=== PATIENT | female | born 1940 | race Asian ===

== ENCOUNTER 2016-11-20 05:24 | Day surgery (SDC) | payer OTHER, MEDICARE ==
[2016-11-20] MEDS ORDERED: LR 1,000 ML IV ONE (05:59)
[2016-11-20] MEDS ORDERED: LIDOCAINE 1% 5 ML SDV ID PRN (05:59)
[2016-11-20] MEDS ORDERED: SKIN ADHESIVE (DERMABOND) 1 EACH TP ONE (06:51)
[2016-11-20] MEDS ORDERED: EPINEPHrine 30 MG/30 ML MDV ONE (06:51)
[2016-11-20] MEDS ORDERED: LIDO/BUPIVA 10ML SYR IU ONE (07:00)
[2016-11-20] MEDS ORDERED: LIDO/BUPIVA/morphINE 15ML SYR IU ONE (07:00)
[2016-11-20] MEDS ORDERED: CLINDAMYCIN 600 MG/DEXTROSE 50 ML IV ONE (07:00)
[2016-11-20] MEDS ORDERED: PROPOFOL/EMULSION 500 MG/50 ML BOTTLE IV ONE (07:09)
[2016-11-20] MEDS ORDERED: LIDOCAINE 2% 5 ML SDV ONE (07:09)
[2016-11-20] MEDS ORDERED: fentaNYL 100 MCG/2 ML INJ ONE (07:09)
[2016-11-20] MEDS ORDERED: DEXAMETHASONE 4 MG/ML VIAL ONE ×2 (07:11)
[2016-11-20] MEDS ORDERED: ROPIVACAINE HCL 150 MG/30 ML INJ ONE (07:20)
[2016-11-20] MEDS ORDERED: PHENYLEPHRINE HCL 100 MCG/ML SYR ONE (07:42)
[2016-11-20] MEDS ORDERED: PROPOFOL 200 MG/20 ML VIAL ONE (08:00)
[2016-11-20] MEDS ORDERED: GLYCOPYRROLATE 0.2 MG/1 ML VIAL ONE (08:34)
[2016-11-20] MEDS ORDERED: CEFAZOLIN 1 GM/DEXTROSE/50 ML BAG IV ONE (10:01)
[2016-11-20] MEDS ORDERED: CLINDAMYCIN 300 MG in NS 50 ML IV ONE (11:00)
--- NOTE | 2016-11-20 11:26 | GOP ---
[f rep st] OPERATIVE REPORT DATE OF OPERATION: 11/20/2016 SURGEON: Gerry Roberts MD PLANT CUSTODIAN: Ysabel Ho It should be noted no qualified resident was available. dental assistant teacher was necessary to assist with the procedure. ANESTHESIA: General with interscalene block. ANESTHESIOLOGIST: Dr. Wong. PREOPERATIVE DIAGNOSIS: Right shoulder rotator cuff tear, impingement, acromioclavicular joint inflammation, biceps tendon tendonitis. POSTOPERATIVE DIAGNOSIS: Right shoulder rotator cuff tear, impingement, acromioclavicular joint inflammation, biceps tendon tendonitis. PROCEDURE PERFORMED: 1. Arthroscopic repair of rotator cuff. CPT code 43939. 2. Arthroscopic subacromial decompression. CPT code 47680. 3. Arthroscopic distal clavicle excision. CPT code 73952. 4. Mini open subpectoral biceps tenodesis. CPT code 40028. ARTHROSCOPIC FINDINGS: 1. Intact articular cartilage with some small grade 2 changes on the humeral head and glenoid with an intact glenoid. 2. Intact anterior, inferior and posterior labrum. 3. Type 2 SLAP lesion. 4. Biceps tendon degeneration. 5. Full-thickness tear of the supraspinatus. 6. Moderate subacromial bursitis. 7. Downsloping anterior acromion. 8. A tight degenerative acromioclavicular joint. INDICATIONS: Patient is a 75-year-old with persistent right shoulder pain after injuring this last spring. Imaging and examination consistent with a tear of the rotator cuff. Also, impingement, acromioclavicular joint degeneration and biceps tendon degeneration. Patient had options discussed. She desired to go ahead with arthroscopic subacromial decompression, distal clavicle excision, repair of the rotator cuff, and biceps tenodesis. The patient understood the potential risks and benefits, including, but not limited to, bleeding, infection, persistent pain, stiffness and anesthetic risks. The patient understood these and desired to proceed. DESCRIPTION OF PROCEDURE: The patient was taken to the operating room after undergoing successful general anesthesia and an interscalene block. The patient was placed in beach chair position. The right upper extremity was prepped and draped in usual sterile manner. Anatomic landmarks were identified. The anterolateral and anteromedial portal sites were injected with 0.25% Marcaine and 1% lidocaine. The subacromial space was injected with the same. The posterior portal was made. Arthroscope was placed in the joint. With the arthroscope in the joint, an anterior portal was made as well. The probe was placed. The findings are described above. The confirmation of the tendon pathology was identified. The joint was evaluated. The arthroscope was taken out. Anterior axillary incision was made, and the biceps tenodesis was performed. After the incision in the anterior axillary crease, the pectoralis was reflected superiorly. A Hohmann retractor was placed. The biceps was identified. The biceps groove was curetted. A 2.9 mm juggernaut suture anchor was placed. This had two #2 max Braid sutures. These were placed through and around the biceps tendon. The biceps was tied into position. The biceps was cut above this. The arthroscope was placed back in the joint, and the biceps was cut at its attachment, and the superior labrum was debrided. Following this , the lateral portal was made. The undersurface of the rotator cuff was debrided. The greater tuberosity was decorticated. Following this, the arthroscope was placed in the subacromial space. A bursectomy was performed, followed by the subacromial decompression beginning anterolateral and extending from anterolateral to anteromedial with the acromionizer bur. The acromion was made flat. Following this, the distal clavicle was excised. Approximately 7 mm were excised. The superior and posterior ligament remained intact after excising this with the acromionizer bur. Next, a lateral cannula was placed and an anterolateral cannula was placed. The rotator cuff was visualized. This was a U-shaped, V-shaped tear. The [id number] sutures were done with a # 2 FiberWire suture and then 2 anchors were placed, medial along the greater tuberosity and lateral along the greater tuberosity. These were the 2.9 mm juggernaut suture anchors with #2 max Braid sutures. These were passed through in a gotb-su-[id number] fashion. The rotator cuff was fixed down to the bone. This provided good fixation. The tissue was fair to good. The area was irrigated after the . The portal sites were closed using 3-0 nylon suture. The anterior axillary incision was closed using 3-0 Monocryl, followed by a running 3-0 Prolene, followed by Dermabond. The subacromial space was injected with 0.25% Marcaine, 1% lidocaine and 5 mg of Duramorph. The patient had a sterile dressing. The patient was awakened. taken to recovery room in stable condition. Sponge, instrument and needle counts were correct. PATIENT POSITION: Beach chair. PLAN: For the patient to undergo physical therapy according to protocol. . /[id number]/MODL MTDD
== END 2016-11-20 11:55 | disposition home or self-care (01) ==
LOC: FSGY 05:24
PROVIDERS: ATTEND Orthopaedic Surgery Sports Medicine
PROC: 0RNG4ZZ Release Right Acromioclavicular Joint, Percutaneous Endoscopic Approach (ICD-10-PCS; principal; 2016-11-20 07:15)
PROC: 0PB94ZZ Excision of Right Clavicle, Percutaneous Endoscopic Approach (ICD-10-PCS; principal; 2016-11-20 07:15)
PROC: 0LQ14ZZ Repair Right Shoulder Tendon, Percutaneous Endoscopic Approach (ICD-10-PCS; principal; 2016-11-20 07:15)
PROC: 0LM30ZZ Reattachment of Right Upper Arm Tendon, Open Approach (ICD-10-PCS; principal; 2016-11-20 07:15)
DX: S46.011A Strain of muscle(s) and tendon(s) of the rotator cuff of right shoulder, initial encounter (principal); M75.21 Bicipital tendinitis, right shoulder; W06.XXXA Fall from bed, initial encounter; Y92.013 Bedroom of single-family (private) house as the place of occurrence of the external cause
CPT/HCPCS: C1713; J0690; J1100; J2274; J2370; J2704; J2795; J3010; J3490

== ENCOUNTER 2017-04-22 14:37 | Emergency (ER) | payer OTHER, MEDICARE ==
[2017-04-22 14:53] VITALS: BP 138/66; PULSE 90; RESP 18; TEMP 97.7; O2SAT 92
--- NOTE | 2017-04-22 15:40 | EDPHY ---
H & P Smoking Status: Former smoker Time Seen by Provider: 04/22/17 15:28 HPI/ROS: CHIEF COMPLAINT: Right toe injury HISTORY OF PRESENT ILLNESS: 76-year-old female stubbed her right 2nd toe last evening, complaining of pain to same toe. No paresthesia. No proximal pain or injury. She is able to bear weight albeit with pain. Pain reproducible weight- bearing and palpation. PHYSICAL EXAM (Prior to examination, patient consented to physical exam, hands were washed and my usual and customary physical exam procedures followed) 1) GENERAL: Well-developed, well-nourished, alert and oriented. Appears to be in no acute distress. 2) HEAD: Normocephalic 3) HEENT: Pupils equal, round, reactive to light bilaterally. 4) LUNGS: Breathing comfortably. 5) MUSCULOSKELETAL: Tender to palpation right 2nd toe distal phalanx. No deformity, no malrotation, no erythema. normal color, normal temperature Remainder foot nontender. No crepitus proximal tibia and fibula nontender .5th MT nontender negative Garner test, compartments soft 6) SKIN: intact 7) VASCULAR: DP,PT pulses and cap refill present and brisk DIFFERENTIAL DIAGNOSIS: in no particular order including but not limited to fracture, sprain, compartment syndrome Procedure: Splint A Postoperative shoe splint was applied by ER design technician. After application of the splint I returned and re-examined the patient. The splint was adequately immobilizing the joint and distal to the splint the patient's circulation and sensation were intact. Patient shows no signs of compartment syndrome. Was given orthopedic precautions. (Angela Pruett) Constitutional: Initial Vital Signs Temperature (C) 36.5 C 04/22/17 14:50 Heart Rate 90 04/22/17 14:50 Respiratory Rate 18 04/22/17 14:50 Blood Pressure 138/66 H 04/22/17 14:50 O2 Sat (%) 92 04/22/17 14:50 O2 Delivery Mode Room Air Allergies/Adverse Reactions: penicillin V potassium [From Pen-Vee K] Allergy (Severe, Verified 04/22/17 14:49 ) Anaphylaxis Sulfa (Sulfonamide Antibiotics) Allergy (Intermediate, Verified 04/22/17 14:49) VERY SICK Home Medications: Medication Instructions Recorded Aspirin [Aspirin 325 mg (*)] 325 mg PO DAILY 11/15/14 Budesonide/Formoterol 160/4.5 2 puffs IH BID 11/15/14 [Symbicort 160-4.5 Mcg Inh (*)] Escitalopram Oxalate [Lexapro 10 5 mg PO DAILY 11/15/14 MG] Herbals/Supplements -Info Only 1 ea PO DAILY 11/15/14 Levothyroxine [Synthroid 75 mcg 75 mcg PO DAILY06 11/15/14 (*)] Losartan Potassium [Cozaar] 50 mg PO DAILY 11/15/14 Tiotropium Inhaler [Spiriva 1 inh IH DAILY 11/16/14 Inhaler (RX)] Co Q-10 1 tab DAILY 10/31/16 Multivitamin (*) 2 tab DAILY 10/31/16 Ranitidine HCl 2 tab DAILY 10/31/16 Vitamin B12 (*) 1 tab DAILY 10/31/16 MDM/Departure - [facility] ED Course/Re-evaluation: I did not see this patient while she was in the emergency department. However her care was discussed with the PA while the patient was in the department. I agree with treatment plan and management (Artem Dotson) - Depart Disposition: Home, Routine, Self-Care Clinical Impression: Toe fracture, right Qualifiers: Encounter type: initial encounter Toe: lesser toe Fracture type: closed Phalanx : distal Fracture alignment: nondisplaced Qualified Code(s): S92.534A - Nondisplaced fracture of distal phalanx of right lesser toe(s), initial encounter for closed fracture Condition: Good Instructions: Toe Fracture (ED) Additional Instructions: Return to the ER immediately if you experience discoloration, have worsening pain, numbness, tingling, or any other symptoms that concern you. If you received x-rays in the emergency department today, be advised, that ligamentous , tendon, muscular, and other non-bony injury cannot be fully ruled out. Try to keep your affected extremity elevated above the level of your chest, and keep cold packs on the affected area, for the next 48 hours. Referrals: Genia Weber [Doctor of Podiatric Medicine] - 1-2 days without fail
== END 2017-04-22 15:46 | disposition home or self-care (01) ==
DX: S92.534A Nondisplaced fracture of distal phalanx of right lesser toe(s), initial encounter for closed fracture (principal); Z79.82 Long term (current) use of aspirin; Z87.891 Personal history of nicotine dependence; W22.8XXA Striking against or struck by other objects, initial encounter

== ENCOUNTER 2017-11-18 18:27 | Inpatient (IN) | payer OTHER, MEDICARE ==
[2017-11-18] MEDS ORDERED: PANTOPRAZOLE SODIUM 40 MG VIAL IVP ONE (18:56)
[2017-11-18] MEDS ORDERED: NS 500 ML IV ONE (18:56)
[2017-11-18 19:10] LABS: PLATELET COUNT 210 10^3/uL (150-400)
--- NOTE | 2017-11-18 19:26 | EDPHY ---
H & P Time Seen by Provider: 11/18/17 18:56 HPI/ROS: HPI Rectal bleeding. 76-year-old female who private vehicle with . This patient reports that shortly after eating dinner at approximately 6:15 p.m., she felt the urge to defecate. She then had a large episode of maggie bright red blood per rectum mixed with some fecal matter. She reports that this filled the toilet bowl. She describes this is painless. Denies any rectal pain or abdominal pain. She reports that she had a similar episode years ago. She had a colonoscopy performed by Dr. Torres. The bleeding was attributed to a polyp. She currently takes aspirin. No other anticoagulation or antiplatelet agent. Denies any abdominal pain. Last meal was dinner at approximately 6:00 p.m.. ROS: Constitutional: No fever, no chills. No weakness. Eyes: No discharge. No changes in vision. ENT: No sore throat. No nasal congestion or rhinorrhea. Respiratory: No cough. No shortness of breath. Cardiac: No chest pain, no palpitations. Gastrointestinal: No abdominal pain, no vomiting, no diarrhea. Genitourinary: No hematuria. No dysuria or increased frequency with urination. As above. Musculoskeletal: No back pain. No neck pain. No myalgias or arthralgias. Skin: No rashes. Neurological: No headache. No focal weakness or altered sensation. Past medical history: Hypertension, hypothyroidism, brain aneurysm, inguinal hernia repair, coronary artery disease with CABG in multiple stents. Social history: Nonsmoker. Drinks alcohol socially. Here with her . Physical Exam: General Appearance: Alert, no distress. This patient is responding to questions appropriately and in full sentences. This patient appears well- hydrated and well-nourished. Eyes: Pupils equal and round no pallor or injection. No lid edema, erythema or injection. Respiratory: There are no retractions, lungs are clear to auscultation with good air movement bilaterally. Cardiovascular: Regular rate and rhythm. No murmur. Gastrointestinal: Abdomen is soft and nontender, no masses, bowel sounds normal. No focal tenderness at McBurney's point. No Han sign. Rectal exam: External hemorrhoids which are not bleeding. Normal rectal tone, gross blood present. Neurological: Motor sensory function is grossly intact. Cranial nerves are normal. Gait is normal. Skin: Warm and dry, no rashes. Musculoskeletal: Neck is supple and nontender. Extremities are symmetrical. All joints range without pain or impingement. Psychiatric: No agitation. No depression. Database: EKG: Imaging: Procedures: Emergency department course: Vital signs reviewed and are normal. IV placed. She was placed on a monitor. She was started on IV normal saline with 500 cc to be given over the next hour. She was started on IV Protonix. 7:55 p.m., patient re-evaluated. Resting comfortably. She has had no further episodes of gross rectal bleeding. She denies any pain at this time. She appears comfortable. Vital signs were reviewed and are stable. Gastroenterology paged. 8:00 p.m., spoke with on-call chargemaster specialist Dr. Luna. Case discussed in detail. Plan will be to admit this patient to hospitalist service, prep patient for colonoscopy in the morning. This was discussed with the patient. She endorses. Hospitalist paged. 8:05 p.m., spoke with Dr. Morley of the hospitalist service. Case discussed in detail with him. He accepts this patient for admission. Her remaining emergency department course under my care has been uneventful. She was admitted to the hospitalist service under the care of Dr. Morley in stable condition. Differential Diagnosis: The differential diagnosis on this patient includes but is not limited to upper versus lower gastrointestinal bleeding, history of colonic polyps. This represents a partial list of diagnoses considered. These considerations are based on history, physical exam, past history, reassessment and diagnostic testing. Smoking Status: Former smoker Constitutional: Initial Vital Signs Temperature (C) 36.4 C 11/18/17 18:35 Heart Rate 95 11/18/17 18:35 Respiratory Rate 17 11/18/17 18:35 Blood Pressure 121/79 H 11/18/17 18:35 O2 Sat (%) 93 11/18/17 18:35 O2 Delivery Mode Nasal Cannula O2 (L/minute) 2 Allergies/Adverse Reactions: penicillin V potassium [From Pen-Vee K] Allergy (Severe, Verified 11/18/17 18:34 ) Anaphylaxis Sulfa (Sulfonamide Antibiotics) Allergy (Intermediate, Verified 11/18/17 18:34) VERY SICK Home Medications: Medication Instructions Recorded Budesonide/Formoterol 160/4.5 2 puffs IH BID 11/15/14 [Symbicort 160-4.5 Mcg Inh (*)] Cyanocobalamin [Vitamin B12 (*)] 5,000 mcg PO HS 10/31/16 Ranitidine HCl [Zantac] 300 mg PO HS 10/31/16 Albuterol [Proventil Inhaler HFA 1 - 2 puffs IH Q4H PRN 11/18/17 (*)] Aspirin [Aspirin 81mg (*)] 81 mg PO DAILY 11/18/17 Escitalopram Oxalate [Lexapro] 5 mg PO HS 11/18/17 Herbals/Supplements -Info Only 1 ea PO DAILY 11/18/17 Levothyroxine [Synthroid 75 mcg 75 mcg PO DAILY06 11/18/17 (*)] Losartan Potassium [Cozaar 50 mg 50 mg PO DAILY 11/18/17 (*)] Multivitamins [Multivitamin (*)] 1 each PO DAILY 11/18/17 Tiotropium Inhaler [Spiriva 18 mcg IH DAILY 11/18/17 Handihaler] Medical Decision Making - Data Points Laboratory Results: Laboratory Results 11/18/17 18:52 11/18/17 18:52 Medications Given: Budesonide/Formoterol Fumarate (Symbicort 160-4.5 Mcg Inhaler) 2 puffs IH BID [facility] Stop: 05/17/18 20:59 Last Admin: 11/19/17 09:03 Dose: 2 puffs Escitalopram Oxalate (Lexapro) 5 mg PO HS [facility] Stop: 05/17/18 20:59 Last Admin: 11/18/17 21:48 Dose: 5 mg Famotidine (Pepcid) 20 mg PO HS [facility] Stop: 05/17/18 20:59 Last Admin: 11/18/17 21:55 Dose: Not Given Levothyroxine Sodium (Synthroid) 75 mcg PO DAILY06 [facility] Stop: 05/18/18 05:59 Last Admin: 11/19/17 05:14 Dose: Not Given Multivitamins (Tab-A-Rylee) 1 each PO DAILY [facility] Stop: 05/18/18 08:59 Last Admin: 11/19/17 09:08 Dose: Not Given Tiotropium Mcandrews (Spiriva Handihaler) 18 mcg IH DAILY [facility] Stop: 05/18/18 08:59 Last Admin: 11/19/17 09:04 Dose: Not Given Vitamin B Complex (Vitamin B12) 5,000 mcg PO HS [facility] Stop: 05/17/18 20:59 Last Admin: 11/18/17 21:55 Dose: Not Given Discontinued Medications Sodium Chloride (Ns) 500 mls @ 0 mls/hr IV EDNOW ONE; Wide Open PRN Reason: Protocol Stop: 11/18/17 18:57 Last Admin: 11/18/17 19:09 Dose: 500 mls Sodium Chloride (Ns) 1,000 mls @ 75 mls/hr IV CONT [facility] Stop: 05/17/18 21:29 Last Admin: 11/18/17 21:48 Dose: 1,000 mls Pantoprazole Sodium (Protonix) 80 mg IVP EDNOW ONE Stop: 11/18/17 18:57 Last Admin: 11/18/17 19:33 Dose: 80 mg Polyethylene Glycol/Electrolytes (Gavilyte - G) 4,000 ml PO ONCE ONE Stop: 11/18/17 20:20 Last Admin: 11/18/17 21:48 Dose: 4,000 ml Departure - Departure Disposition: [facility] Clinical Impression: Rectal bleeding
[2017-11-18 19:39] LABS: INR 0.92 (0.83-1.16); PROTIME(PATIENT) 12.6 SEC (12.0-15.0)
[2017-11-18] MEDS ORDERED: ALBUTEROL 60 PUFFS/8 GM MDI IH PRN (20:19)
[2017-11-18] MEDS ORDERED: PEG 3350/NA SULF,BICARB,CL/KCL (GAVILYTE-G) 4000 ML BTL PO ONE (20:19)
--- NOTE | 2017-11-18 21:02 | PDGENHP ---
History and Physical History and Physical: CC: Rectal bleeding this evening HISTORY: This is the 3rd ever rectal bleeding episode for Ms Martin. She states that she was feeling fine eating dinner tonight when around quarter after 6 she had a sudden urge to defecate. She got up to the commode and passed a moderately large amount of red blood followed by a small piece of normal formed brown stool. She has had no bleeding since then and in fact has had 1 more bowel movement since then. She has no abdominal back flank rectal or anal pain or discomfort of any kind. There is no nausea and she has had no vomiting. She is not lightheaded or dizzy does not have chest pain or shortness of breath. She takes no nonsteroidal anti-inflammatories, no aspirin , no platelet inhibitors, no anticoagulants. She has been feeling well recently with normal appetite normal bowel function and no weight loss. No fevers. The patient did have a very brief nose bleed about a week ago but has had no other bleeding or bruising recently. Her 1st lower GI bleed was in 2011. At that time her bleeding stops spontaneously and she had a colonoscopy that showed 1 polyp which was biopsied and to diverticuli. There was no evidence as to the site of bleeding at that time. She return here in 2014 again with lower GI bleeding although that case was complicated by a more severe bleeding requiring transfusions and she actually was identified radiographically of having a cecal bleed which was treated with a coiling of the ileocolic artery which was successful. There was no endoscopy at that time and so it was not determined what the cause of that bleeding episode was. Notably her cecum was identified in the 2012 colonoscopy and there was no comment on any pathologic abnormality there. Also notable is that the patient had an abdominal aortic aneurysm with involvement of hypogastric in iliac arteries and she has had repair of the abdominal aorta as well as subsequent by passing of hypogastric and iliac arteries. She also has had a coiling of a cerebral aneurysm which was successful and she has no neurologic symptoms. ROS: A comprehensive 10 system review revealed no other significant findings PAST MEDICAL HISTORY: -2 prior episodes of lower GI bleeding, uncertain source but the 2nd was treated with coiling of ileocolic artery for a cecal bleed -2 diverticuli and a polyp noted on colonoscopy in 2012 -abdominal aortic aneurysm, aneurysms of hypogastric and iliac arteries all treated surgically; aneurysm of intracranial vessel treated by coiling elsewhere -COPD, treated at [facility] -hypertension -mild chronic kidney disease FAMILY MEDICAL HISTORY: No similar aneurysmal disease Mother lived to 94 father in his 70s of COPD SOCIAL HISTORY: and lives with her who is here at the bedside and very supportive Retired registered nurse No tobacco or alcohol MEDICATIONS: The patients list has been reconciled by our clinical pharmacist in the EMR. I have reviewed the list and ordered appropriate medicines. PHYSICAL EXAMINATION: Vital Signs: All stable at this time without fever Manager Mobile: Sinus rhythm Examination: General: alert, oriented, good mentation, relaxed Skin: warm, dry, good color, no rash HEENT: normal Neck: no mass or jvd Resps: relaxed Lungs: clear breath sounds Heart: regular, no murmur Abdomen: soft, nondistended, nontender, +BS, no mass Upper Extremities: normal Lower Extremities: no edema, warm No Bleeding or bruising noted on exam Neurologic: normal speech/language, normal bell neck hammerer, no focal weakness IV site: looks normal LABORATORY DATA: For CBC is unremarkable, coagulation studies normal On chemistry are creatinine is 1.3 with a baseline of 1.1 from 2015 otherwise metabolic panel normal RADIOLOGY STUDIES: None so far 12 LEAD EKG: None so far IMPRESSION: # ACUTE LOWER GI BLEED IS MOST LIKELY THE CAUSE OF HEMATOCHEZIA # PRIOR HISTORY OF 2 PREVIOUS LOWER GI BLEEDS OF UNCERTAIN SOURCE BUT 1 REQUIRED TRANSFUSIONS AND COILING OF ILEOCOLIC ARTERY # PRESENCE OF 2 DIVERTICULI AND A POLYP IN 2011 # MULTIPLE ANEURYSMS INCLUDING AORTA ILIAC ARTERIES HYPOGASTRIC ARTERY AND AN INTRACEREBRAL ANEURYSM ALL HAVE BEEN TREATED EITHER SURGICALLY OR WITH STENT AND COIL IN THE CASE OF THE INTRA CEREBRAL VESSEL # STABLE COPD AND HYPERTENSION The patient comes in stable in terms of vital signs and blood count. However her story is concerning in that there is no known etiology for her to previous bleeds, her 2nd episode required transfusions in a vascular procedure, and she has history of multiple vascular abnormalities including numerous aneurysms that have required surgeries and endovascular repair. Those overall she is at significant risk for problematic bleeding and complications. PLANS: -inpatient admission to the hospital for careful monitoring and diagnostic evaluations -IV hydration -blood to the blood bank for type and screen in case transfusion is needed -at this time will plan for colonoscopy in the morning -careful monitoring of vital signs and blood counts I reviewed all the above in detail with the patient and at the bedside and answered their questions Dr. Jones now from Gastroenterology has been consulted by the emergency staff I have reviewed the patient's case in detail with Dr. Sol I have reviewed the patient's past medical records as part of this assessment, including prior hospital records including endoscopy reports, laboratory data, admission and discharge notes And radiology reports
[2017-11-18] MEDS ORDERED: ZOLPIDEM TARTRATE 5 MG TAB PO PRN (21:18)
[2017-11-18] MEDS ORDERED: ACETAMINOPHEN 325 MG TAB PO PRN (21:18)
[2017-11-18] MEDS ORDERED: ONDANSETRON 4 MG/2 ML VIAL IVP PRN (21:18)
[2017-11-18] MEDS ORDERED: ONDANSETRON DISINTEGRATING 4 MG TAB PO PRN (21:18)
[2017-11-18] MEDS ORDERED: NS 1,000 ML IV SCH (21:30)
[2017-11-18] MEDS: ESCITALOPRAM OXALATE 10 MG TAB PO SCH (21:48)
[2017-11-18] MEDS: FAMOTIDINE 20 MG TAB PO SCH (21:55)
[2017-11-18] MEDS: CYANO/VITAMIN B12 1000 MCG TAB PO SCH (21:55)
[2017-11-18] MEDS: BUDESONIDE/FORMOTEROL 160/4.5 60 PUFFS/MDI IH SCH (22:08)
[2017-11-19] MEDS: LEVOTHYROXINE 75 MCG TAB PO SCH (05:14)
[2017-11-19] MEDS: BUDESONIDE/FORMOTEROL 160/4.5 60 PUFFS/MDI IH SCH ×2 (09:03→19:34)
[2017-11-19] MEDS: TIOTROPIUM INHALER 18 MCG/DOSE 5 DOSE/MDI IH SCH (09:04)
[2017-11-19] MEDS: MULTIVITAMINS 1 EACH TAB PO SCH (09:08)
--- NOTE | 2017-11-19 09:33 | ASMTCMCOM ---
CM Note CM Note Notes: Patient admitted for acute rectal bleeding. She has a remote history of lower GI bleeds as well as multiple aneurysms. She will be seen by GI and has a colonoscopy scheduled for today. Patient lives with her and is normally independent. I do not anticipate any discharge needs, but Case Management is available if any arise. Date Signed: 11/19/2017 09:32 AM Electronically Signed By:Moriah Luna RN
--- NOTE | 2017-11-19 10:20 | HOSPPROG ---
Hospitalist Progress Note Assessment/Plan: 76 yo F w BRBPR BRBPR; feel most consistent w diverticular bleed colonoscopy today no fever to suggest aortoenteric fistula ABLA: follow bid no need for transfusion h/o AAA repair: benign abd exam proph: hold LMWH dispo: inpt Subjective: case d/w dr quintanilla. no fever. continues to pass blood but no melena Objective: Vital Signs Temp Pulse Resp BP Pulse Ox 36.6 C 71 16 120/63 96 11/19/17 07:43 11/19/17 09:04 11/19/17 09:04 11/19/17 07:43 11/19/17 09:04 Laboratory Results 11/19/17 10:02 11/19/17 05:10 11/18/17 11/19/17 11/20/17 05:59 05:59 05:59 Intake Total 500 Balance 500 PT 12.6 SEC (12.0-15.0) 11/18/17 18:52 INR 0.92 (0.83-1.16) 11/18/17 18:52 - Physical Exam Constitutional: no apparent distress, appears nourished Eyes: PERRL, anicteric sclera Ears, Nose, Mouth, Throat: moist mucous membranes, hearing normal, ears appear normal Cardiovascular: regular rate and rhythym, no murmur, rub, or gallop Respiratory: no respiratory distress, no rales or rhonchi Gastrointestinal: normoactive bowel sounds, soft, non-tender abdomen Genitourinary: no bladder fullness, No smith in urethra Skin: warm, normal color Musculoskeletal: full muscle strength, no muscle tenderness Neurologic: AAOx3, sensation intact bilaterally ICD10 Worksheet Patient Problems: Problems Problem Status Onset Rectal bleeding Acute GI bleed Acute
--- NOTE | 2017-11-19 10:42 | GCON ---
[f rep st] CONSULTATION DATE OF CONSULTATION: 11/19/2017 CHIEF COMPLAINT: Hematochezia. HISTORY OF PRESENT ILLNESS: Patient is a 76-year-old with a complex history of recurrent GI bleeding, who presents with acute onset of bright red blood per rectum since yesterday with multiple bowel movements. She is now seeing some clots, but no melena. With this, she has had no abdominal pain, no nausea, vomiting, hematemesis. She gets occasional GERD symptoms. She takes a baby aspirin but no additional NSAIDs or anticoagulants. She does have a history of aneurysms, which have been treated. She also had a history of AAA repair in 2009. She had history of GI bleeding in 2011. At that time, she underwent an upper and lower endoscopy by Dr. Torres, was found to have 2 diverticula and a polyp removed. Bleeding stops spontaneously. However, she returned a week later with a significant bleed requiring transfusion and then was treated with interventional radiology with coiling at a site at the cecum. She states she had another colonoscopy while down in [place] since that time, but we do not have a report. She has also had coiling of cerebral aneurysms. ALLERGIES: Penicillin and sulfa. MEDICATIONS ON ADMISSION: Include several inhalers, Cozaar, Synthroid, Lexapro , ranitidine, aspirin, and B12. PAST MEDICAL HISTORY: 1. Notable for 2 lower GI bleedings, second one requiring coiling of the ileocolonic artery for cecal bleed. 2. History of diverticulosis and colon polyp noted in 2011. 3. History of AAA repair. 4. COPD. 5. Hypertension. 6. Chronic renal disease. SOCIAL HISTORY: The patient is a prior smoker, stopped 10 years. FAMILY HISTORY: Negative for colon cancer. REVIEW OF SYSTEMS: I performed a complete review of systems which was negative except for the pertinent positives and negatives noted above in HPI. PHYSICAL EXAM: VITAL SIGNS: Afebrile at 36.7, BP 161/61, pulse 85. GENERAL: She is alert and oriented. EYES: No scleral icterus. HEENT: No oral lesions. CARDIOVASCULAR: Regular rate and rhythm. CHEST: Clear auscultation. ABDOMEN: Positive bowel sounds. Soft and nontender. Surgical scars noted. NEUROLOGIC: Nonfocal. SKIN: No lesions, no rashes. LABORATORY DATA: BUN creatinine 22 and 1.3. Hematocrit on admission was 44.8, is now 36.8 with a hemoglobin of 12. Protime is normal. ASSESSMENT: Gastrointestinal bleed, most consistent with lower gastrointestinal bleed with history of obscure bleeding treated with Interventional Radiology in 2012, also with noted diverticulosis and history of polyps. Of concern is patient's history of aneurysms, may consider arteriovenous malformation, also is abdominal aortic aneurysm repair in 2010. Consider possibility of aortic enteric fistula, I think less likely. PLAN: Recommend colonoscopy for evaluation of her hematochezia. However, I also recommended upper endoscopy in the same setting given her history of unusual bleeding and to assess for any aortic enteric fistula involving the duodenum. Overall patient would be high risk fro endoscopy due to COPD and h/o significant bleeding but I think can be done safely with anesthesia. If she continues to bleed, may need to consider angio as guided by endoscopic findings. Thank you for this consult. /[id number]/MODL MTDD
--- NOTE | 2017-11-19 10:44 | PDANEPAE ---
ANE History of Present Illness Patient presents for EGD colonoscopy ANE Past Medical History - Cardiovascular History Hx Hypertension: Yes Hx Arrhythmias: No Hx Chest Pain: No Hx Coronary Artery / Peripheral Vascular Disease: No Hx CHF / Valvular Disease: No Hx Palpitations: No - Pulmonary History Hx COPD: Yes Hx Asthma/Reactive Airway Disease: No Hx Recent Upper Respiratory Infection: No Hx Oxygen in Use at Home: Yes O2 in Use at Home (L/minute): 3 Hx Sleep Apnea: No Sleep Apnea Screening Result - Last Documented: Negative - Neurologic History Hx Cerebrovascular Accident: No Hx Seizures: No Hx Dementia: No - Endocrine History Hx Diabetes: No - Renal History Hx Renal Disorders: No - Liver History Hx Hepatic Disorders: No - Neurological & Psychiatric Hx Hx Neurological and Psychiatric Disorders: Yes Neurological / Psychiatric History Comment: ON MEDICATION - Cancer History Hx Cancer: No - Congenital Disorder History Hx Congenital Disorders: No - GI History Hx Gastrointestinal Disorders: Yes Gastrointestinal History Comment: ON GERD - Chronic Pain History Chronic Pain: Yes (RIGHT SHOULDER) - Surgical History Prior Surgeries: CATARACT SURGERY OS AND OD AND 2009. RIGHT TOTAL KNEE . TRIPLE A BILATERAL ANEURYSM 06/30/2011. HEMATOCHEZIA 05/13/2012. INTRACRANIAL ANEURYSM 07/20/2014. CEREBRAL ANGIOGRAM WITH STENT AND COIL 2013. RIGHT COLIC EMBOLIZATION 11/15/2014. 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 ANE Review of Systems Review of Systems: ANE Patient History - Allergies Allergies/Adverse Reactions: penicillin V potassium [From Pen-Vee K] Allergy (Severe, Verified 11/18/17 18:34 ) Anaphylaxis Sulfa (Sulfonamide Antibiotics) Allergy (Intermediate, Verified 11/18/17 18:34) VERY SICK - Home Medications Home medications: home medication list seen and reviewed Home Medications: Budesonide/Formoterol 160/4.5 [Symbicort 160-4.5 Mcg Inh (*)] 2 puffs IH BID 12/27 [Last Taken 11/18/17] Cyanocobalamin [Vitamin B12 (*)] 5,000 mcg PO HS 10/31/16 [Last Taken 11/17/17] Ranitidine HCl [Zantac] 300 mg PO HS 10/31/16 [Last Taken 11/17/17] Albuterol [Proventil Inhaler HFA (*)] 1 - 2 puffs IH Q4H PRN 11/18/17 [Last Taken Unknown] Aspirin [Aspirin 81mg (*)] 81 mg PO DAILY 11/18/17 [Last Taken 11/18/17] Escitalopram Oxalate [Lexapro] 5 mg PO HS 11/18/17 [Last Taken 11/17/17] Herbals/Supplements -Info Only 1 ea PO DAILY 11/18/17 [Last Taken 11/17/17] Levothyroxine [Synthroid 75 mcg (*)] 75 mcg PO DAILY06 11/18/17 [Last Taken 03/31] Losartan Potassium [Cozaar 50 mg (*)] 50 mg PO DAILY 11/18/17 [Last Taken ] Multivitamins [Multivitamin (*)] 1 each PO DAILY 11/18/17 [Last Taken 11/18/17] Tiotropium Inhaler [Spiriva Handihaler] 18 mcg IH DAILY 11/18/17 [Last Taken 03/31] - NPO status NPO Status: no food or drink >8 hours NPO Since - Liquids (Date): 11/18/17 NPO Since - Liquids (Time): 00:00 NPO Since - Solids (Date): 11/18/17 NPO Since - Solids (Time): 00:00 - Smoking Hx Smoking Status: Former smoker ANE Labs/Vital Signs - Labs Result Diagrams: 11/19/17 10:02 11/19/17 05:10 - Vital Signs Blood Pressure: 120/63 Heart Rate: 71 Respiratory Rate: 16 O2 Sat (%): 96 Height: 162.56 cm Weight: 56.699 kg ANE Physical Exam - Airway Neck exam: FROM Mallampati Score: Class 2 Mouth exam: normal dental/mouth exam - Pulmonary Pulmonary: no respiratory distress (RBA discussed) - Cardiovascular Cardiovascular: regular rate and rhythym - ASA Status ASA Status: III ANE Anesthesia Plan Anesthesia Plan: GA with mask (RBA discussed)
[2017-11-19] MEDS ORDERED: PROPOFOL/EMULSION 500 MG/50 ML BOTTLE IV ONE (10:47)
[2017-11-19] MEDS ORDERED: LR 1,000 ML IV ONE (10:48)
[2017-11-19] MEDS ORDERED: LR 500 ML IV PRN (11:07)
[2017-11-19] MEDS ORDERED: NALOXONE HCL 0.4 MG/ML INJ IVP PRN (11:07)
[2017-11-19] MEDS ORDERED: ONDANSETRON 4 MG/2 ML VIAL IVP PRN (11:07)
--- NOTE | 2017-11-19 11:40 | GIREPORT ---
[facility] - Endoscopy Department Patient Name: Perry Martin Procedure Date: 11/19/2017 10:36 AM Patient Type: Inpatient Attending MD/ ER Physician: Ruchi Aguirre MD Procedure: Upper GI endoscopy Indications: Hematochezia Providers: Ruchi Aguirre MD Medicines: Monitored Anesthesia Care Complications: No immediate complications. Description of Procedure: After obtaining informed consent, the endoscope was passed under direct vision. Throughout the procedure, the patient's blood pressure, pulse, and oxygen saturations were monitored continuously. The Endoscope was intro duced through the mouth, and advanced to the third part of duodenum. The uppe r GI endoscopy was accomplished without difficulty. The patient tolerated th e procedure well. Findings: LA Grade A (one or more mucosal breaks less than 5 mm, not extending be tween tops of 2 mucosal folds) esophagitis with no bleeding was found at the gastroesophageal junction. Localized mild inflammation characterized by erosions was found in the gastric antrum. Biopsies were taken with a cold forceps for histology. Estimated blood loss was minimal. The examined duodenum was normal. Estimated Blood Loss: Estimated blood loss was minimal. Post Op Diagnosis: - LA Grade A reflux esophagitis. - Gastritis. Biopsied. - Normal examined duodenum. Recommendation: - Await pathology results. - Continue present medications. - Can change to PPI PO for 8 weeks once taking PO well. - Perform a colonoscopy today. - Thank you for allowing me to participate in the care of your patient. Attending Participation: I personally performed the entire procedure. Ruchi Aguirre MD Ruchi Aguirre MD 11/19/2017 11:39:30 AM This report has been signed electronicallyRuchi Aguirre MD Number of Addenda: 0 Note Initiated On: 11/19/2017 10:36 AM [email or web address]
--- NOTE | 2017-11-19 11:43 | GIREPORT ---
[facility] - Endoscopy Department Patient Name: Perry Martin Procedure Date: 11/19/2017 10:36 AM Patient Type: Inpatient Attending MD/ ER Physician: Ruchi Aguirre MD Procedure: Colonoscopy Indications: Hematochezia Providers: Ruchi Aguirre MD Medicines: Monitored Anesthesia Care Complications: No immediate complications. Description of Procedure: After obtaining informed consent, the scope was passed under direct vis ion. Throughout the procedure, the patient's blood pressure, pulse, and oxyg en saturations were monitored continuously. The Loaner scope was introduce d through the anus and advanced to the terminal ileum. The colonoscopy wa s performed without difficulty. The patient tolerated the procedure well. The quality of the bowel preparation was poor. The terminal ileum, ileoceca l valve, appendiceal orifice, and rectum were photographed. Findings: The perianal and digital rectal examinations were normal. Scattered diverticula were found in the sigmoid colon, descending colon and ascending colon. Red blood was found in the entire colon. Estimated Blood Loss: Estimated blood loss: none. Post Op Diagnosis: - Preparation of the colon was poor. - Diverticulosis in the sigmoid colon, in the descending colon and in t he ascending colon. - Blood in the entire examined colon although more red blood in then proximal colon. No blood seen in ilium. No active site of bleeding seen . Consider diverticular bleed vs vascular malformation based on her histo ry. - No specimens collected. Recommendation: - [facility]. - Clear liquid diet. - Monitor H+H if re bleeding consider angio (possible tagged cell scan first). - Thank you for allowing me to participate in the care of your patient. Attending Participation: I personally performed the entire procedure. Ruchi Aguirre MD Ruchi Aguirre MD 11/19/2017 11:43:15 AM This report has been signed electronicallyRuchi Aguirre MD Number of Addenda: 0 Note Initiated On: 11/19/2017 10:36 AM Total Procedure Duration Time 0 hours 24 minutes 17 seconds [email or web address]
[2017-11-19] MEDS: ESCITALOPRAM OXALATE 10 MG TAB PO SCH (21:41)
[2017-11-19] MEDS: FAMOTIDINE 20 MG TAB PO SCH (21:41)
[2017-11-19] MEDS: CYANO/VITAMIN B12 1000 MCG TAB PO SCH (21:43)
[2017-11-20] MEDS: LEVOTHYROXINE 75 MCG TAB PO SCH (06:34)
[2017-11-20 07:47] VITALS: BP 118/65; PULSE 86; RESP 24; TEMP 98
[2017-11-20] MEDS: MULTIVITAMINS 1 EACH TAB PO SCH (08:32)
[2017-11-20] MEDS: BUDESONIDE/FORMOTEROL 160/4.5 60 PUFFS/MDI IH SCH (09:05)
[2017-11-20] MEDS: TIOTROPIUM INHALER 18 MCG/DOSE 5 DOSE/MDI IH SCH (09:06)
--- NOTE | 2017-11-20 09:30 | SOAPPROG ---
[facility] Progress Note Assessment/Plan: Assessment: LGIB No resolved suspect diverticular bleed but would consider pt as risk fro AVM given history. Gastritis Plan: Advance diet as tolerated OK to discharge home Pepcid BID for 8 weeks Discussed with pt to monitor for rebleeding. If so patient will return to hospital and recommend tagged cells scan and/or angio 11/20/17 09:28 Subjective: CC BRPBR Pt with no further BN since colon no BRBPR Objective: Vital Signs Temp Pulse Resp BP Pulse Ox 36.7 C 86 24 H 118/65 92 11/20/17 07:41 11/20/17 07:41 11/20/17 07:41 11/20/17 07:41 11/20/17 07:41 Laboratory Results 11/20/17 05:12 11/19/17 05:10 11/19/17 11/20/17 11/21/17 05:59 05:59 05:59 Intake Total 500 1915 Output Total 325 Balance 500 1590 PT 12.6 SEC (12.0-15.0) 11/18/17 18:52 INR 0.92 (0.83-1.16) 11/18/17 18:52 Physical Exam - Physical Exam General Appearance: alert, no apparent distress Respiratory: lungs clear Cardiac/Chest: regular rate, rhythm Abdomen: non-tender, soft ICD10 Worksheet Patient Problems: Problems Problem Status Onset Rectal bleeding Acute GI bleed Acute
--- NOTE | 2017-11-20 09:47 | HOSPPROG ---
Hospitalist Progress Note Assessment/Plan: 76 yo F w BRBPR BRBPR; feel most consistent w diverticular bleed colonoscopy today no fever to suggest aortoenteric fistula ABLA: follow bid no need for transfusion h/o AAA repair: benign abd exam proph: hold LMWH dispo: home today > 30 minutes Subjective: no further bleeding. case d/w dr quintanilla Objective: Vital Signs Temp Pulse Resp BP Pulse Ox 36.7 C 86 24 H 118/65 92 11/20/17 07:41 11/20/17 07:41 11/20/17 07:41 11/20/17 07:41 11/20/17 07:41 Laboratory Results 11/20/17 05:12 11/19/17 05:10 11/19/17 11/20/17 11/21/17 05:59 05:59 05:59 Intake Total 500 1915 Output Total 325 Balance 500 1590 PT 12.6 SEC (12.0-15.0) 11/18/17 18:52 INR 0.92 (0.83-1.16) 11/18/17 18:52 - Physical Exam Constitutional: no apparent distress, appears nourished Eyes: PERRL, anicteric sclera Ears, Nose, Mouth, Throat: moist mucous membranes, hearing normal Cardiovascular: regular rate and rhythym, systolic murmur Respiratory: no respiratory distress, no rales or rhonchi Gastrointestinal: normoactive bowel sounds, soft, non-tender abdomen Genitourinary: No smith in urethra Skin: warm, normal color Musculoskeletal: full muscle strength, no muscle tenderness Neurologic: AAOx3 Psychiatric: interacting appropriately, not anxious Lymph, Heme, Immunologic: no cervical LAD ICD10 Worksheet Patient Problems: Problems Problem Status Onset Rectal bleeding Acute GI bleed Acute
[2017-11-20 10:20] VITALS: O2SAT 99
--- NOTE | 2017-11-20 10:47 | GDS ---
[f rep st] DISCHARGE SUMMARY DISCHARGE DIAGNOSIS: 1. Acute blood loss anemia. 2. Lower gastrointestinal bleed, presumed diverticular source. 3. History of vascular endograft, abdominal aortic aneurysm repair. 4. Chronic obstructive pulmonary disease. Please see the admission history and physical by Dr. Aj Morley. The patient presented with bright red blood per rectum. She has had GI bleeds before. One was localized to the right cecum a number o f years ago that responded to coiling. The last one, a source was never found. This was a similar p resentation. She had some bright red blood with brown stool. Her hemoglobin went from about 15 to 1 2. She did not require transfusion. She was not anticoagulated. The patient underwent endoscopy showing numerous diverticula and blood but no active source of bleedi ng. The presumed source is diverticula. She has not had fever or chills to suggest an aortic enteri c fistula. She is discharged home. /[id number]/MODL
--- NOTE | 2017-11-20 11:37 | PDMN ---
Medical Necessity Medical necessity: Pt meets IP criteria per MD los >2 mn for ongoing management acute lower GI bleed; admit for further monitoring/workup, IVFs, possible blood transfusion & GI consult; hx COPD, htn, CKD, AAA; per H&P & order 11/18/17
--- NOTE | 2017-11-20 16:41 | POSTANESTH ---
Post Anesthetic Evaluation Cardiovascular Status: Similar to Pre-Op Cond Respiratory Status: Similar to Pre-op Cond. Level of Consciousness/Mental Status: Alert and Oriented Pain Control: Adequate, Prn Tx Ordered Nausea/Vomiting Control: Adequate, Prn Tx Ordered Complications Possibly Related to Anesthesia: None Noted
== END 2017-11-20 11:35 | disposition home or self-care (01) | DRG 378 ==
LOC: F3E 21:17
PROVIDERS: ADMIT Internal Medicine; ATTEND Internal Medicine
PROC: 0DB68ZX Excision of Stomach, Via Natural or Artificial Opening Endoscopic, Diagnostic (ICD-10-PCS; principal; 2017-11-19 10:45)
PROC: 0DJD8ZZ Inspection of Lower Intestinal Tract, Via Natural or Artificial Opening Endoscopic (ICD-10-PCS; principal; 2017-11-19 10:45)
DX: K57.31 Diverticulosis of large intestine without perforation or abscess with bleeding (principal); D62 Acute posthemorrhagic anemia; J44.9 Chronic obstructive pulmonary disease, unspecified; I10 Essential (primary) hypertension; E03.9 Hypothyroidism, unspecified; K20.9 Esophagitis, unspecified; K29.70 Gastritis, unspecified, without bleeding; Z95.1 Presence of aortocoronary bypass graft; Z95.5 Presence of coronary angioplasty implant and graft
CPT/HCPCS: 96374; J2704